=== PATIENT | female | born 1985 | race African-American/Black ===

== ENCOUNTER 2022-09-09 15:30 | Emergency (ER) | payer MEDICAID, OTHER ==
[~2022-09-09] VITALS: Ht 167.6 cm; Wt 75.0 kg
[2022-09-09] MEDS ORDERED: ONDANSETRON HCL 4MG/2ML INJ IV STA ×2 (16:03→21:26)
[2022-09-09] MEDS ORDERED: SODIUM CHLORIDE 0.9% 1,000 ML IV ONE (16:15)
[2022-09-09] MEDS ORDERED: KETOROLAC 30MG/ML VIAL IV ONE (16:45)
[2022-09-09 17:55] LABS: PROTHROMBIN TIME 11.2 sec (9.6-11.0)
[2022-09-09 17:58] LABS: CHLORIDE 106 mEq/L (98-107)
[2022-09-09 18:02] LABS: BASOPHILS % 0.2 % (0.0-2.0); EOSINOPHILS % 0.1 % (0.0-5.0); HEMATOCRIT. 37.5 % (36.0-48.0); HEMOGLOBIN. 12.5 g/dL (12.0-16.0); LYMPHOCYTES % 10.5 % (20.0-50.0); MEAN CORPUSCULAR HEMOGLOBIN 27.7 pg (28.0-32.0); MEAN CORPUSCULAR VOLUME 83.4 fL (81.0-99.0); MEAN PLATELET VOLUME 7.3 fl (7.4-10.4); MONOCYTES % 2.5 % (2.0-8.0); NEUTROPHILS % 86.7 % (40.0-76.0); PLATELET 468 x1000/uL (130-400); RED CELL DISTRIBUTION WIDTH 15.3 % (11.6-14.6)
[2022-09-09 18:04] LABS: ETHANOL BLOOD < 10 mg/dL
[2022-09-09] MEDS ORDERED: MORPHINE SULFATE 4 MG/ML CPJ (NOT FOR IM USE) IV STA (21:26)
[2022-09-09] MEDS ORDERED: KETOROLAC 30MG/ML VIAL IV NR (23:15)
[2022-09-09] MEDS ORDERED: MORPHINE SULFATE 4 MG/ML CPJ (NOT FOR IM USE) IV NR (23:15)
[2022-09-09] MEDS ORDERED: ONDANSETRON HCL 4MG/2ML INJ IV NR (23:15)
[2022-09-09] MEDS ORDERED: PIPERACILLIN/TAZ 3.375G PREMIX 50 ML IV NR (23:30)
[2022-09-09] MEDS ORDERED: DOXYCYCLINE HYCLATE 100 MG/VIAL IV ONE (23:30)
[2022-09-09] MEDS ORDERED: CEFTRIAXONE 1 G PREMIX 50 ML IV NR (23:30)
[2022-09-09] MEDS ORDERED: PIPERACILLIN/TAZOBACTAM 3.375GM/50ML PREMIX IV ONE (23:30)
[2022-09-10] MEDS ORDERED: DOXYCYCLINE 100MG in DEXTROSE 5% WATER 100ML IV NR ×2
[2022-09-10 00:18] LABS: CLARITY URINE CLOUDY (CLEAR); COLOR URINE YELLOW (YELLOW); KETONES URINE 4+ (NEGATIVE); LEUKOCYTE ESTERASE URINE NEGATIVE (NEGATIVE); NITRITE URINE POSITIVE (NEGATIVE); OCCULT BLOOD URINE 1+ (NEGATIVE); PH URINE 5.5 (4.5-8.0); PROTEIN URINE 2+ (NEGATIVE); UROBILINOGEN URINE 0.2 E.U./dL (0.2-1.0)
[2022-09-10] MEDS ORDERED: DOXY100C5 MT ×3 (00:53→12:20)
[2022-09-10] MEDS ORDERED: IOHEXOL-300 100 ML BOTTLE ONE (03:04)
[2022-09-10 03:31] VITALS: BP 143/85
== END 2022-09-10 03:35 | disposition home or self-care (01) ==
LOC: ER 15:30
DX: R10.30 Lower abdominal pain, unspecified (principal); R11.2 Nausea with vomiting, unspecified; F12.10 Cannabis abuse, uncomplicated; I10 Essential (primary) hypertension; Z90.710 Acquired absence of both cervix and uterus; Z20.822 Contact with and (suspected) exposure to COVID-19
CPT/HCPCS: 36415; 74176; 74177; 76830; 76856; 80053; 80320; 81003; 83605; 83690; 85025; 85610; 87426; 96361; 96365; 96367; 96375; 99285; C9803; J0696; J1885; J2270; J2405; J3490; J7030; J7060; Q9967; G0480